=== PATIENT | male | born 1975 | race Caucasian/White ===

== ENCOUNTER 2016-12-16 08:29 | Inpatient (IN) | payer BC ==
[2016-12-05 09:59] VITALS: Ht 188 cm; Wt 171.3 kg
--- NOTE | 2016-12-05 10:44 | PAT Medication Instructions ---
Service Date Dec 05, 2016. Current Home Medication List Acetaminophen (Tylenol Arthritis Ext Rel), 1,300 MG PO PRN Albuterol Hfa (Ventolin Hfa), 2 PUFFS INH Q6H PRN for PRN Atomoxetine (Strattera), 80 MG PO QAM Dextromethorphan-Guaifenesin (Mucinex Dm), 1 TAB PO PRN Lisinopril (Zestril), 10 MG PO QAM Loratadine (Claritin), 10 MG PO QAM Montelukast Sodium (Singulair), 10 MG PO HS Medication Instructions For Your Scheduled Surgery - Hold the following medications the morning of surgery: Loratadine (Claritin), 10 MG PO QAM Lisinopril (Zestril), 10 MG PO QAM Dextromethorphan-Guaifenesin (Mucinex Dm), 1 TAB PO PRN Atomoxetine (Strattera), 80 MG PO QAM (okay to take after surgery) - Take the following medications the morning of surgery with a sip of water: Acetaminophen (Tylenol Arthritis Ext Rel), 1,300 MG PO PRN Albuterol Hfa (Ventolin Hfa), 2 PUFFS INH Q6H PRN for PRN (bring with you hospital morning of surgery) - Take the following medications as scheduled the night before surgery: Montelukast Sodium (Singulair), 10 MG PO HS Acetaminophen (Tylenol Arthritis Ext Rel), 1,300 MG PO PRN Albuterol Hfa (Ventolin Hfa), 2 PUFFS INH Q6H PRN for PRN If you have any questions please call us at [phone] (Clementina Green PA-C) or [phone] or [phone]
[2016-12-05 12:19] LABS: URINE APPEARANCE CLEAR (CLEAR); URINE BILIRUBIN NEG (NEG); URINE COLOR YELLOW; URINE NITRITE NEG (NEG); URINE SPECIFIC GRAVITY 1.019 (1.000-1.030); UROBILINOGEN NEG (NEG)
[2016-12-05 12:52] LABS: MANUAL MICROSCOPIC REQUIRED? NO; REVIEW REQ? NO
[~2016-12-16] VITALS: Ht 188 cm; Wt 171.3 kg
[2016-12-16] VITALS (8 sets, daily range): BP systolic 120–162; BP diastolic 76–110; PULSE 85–100; TEMP 36–37.1; O2SAT 93–100
--- NOTE | 2016-12-16 07:29 | History and Physical ---
History & Physical Date & Time of Service: Dec 16, 2016 at 07:22 Chief Complaint: Lumbar Spinal Stenosis Primary Care Physician: Magalis Burns PA-C History of Present Illness Source: patient Patient presents with years of uncontrolled back pain and bilateral buttock pain. Has failed epidural injections and presents for surgical intervention. Social History Smoking Status: Former Smoker Allergies Coded Allergies: Erythromycin (Verified Allergy, Unknown, RED SKIN, FELT HOT, 12/05/16) Fluticasone (Verified Allergy, Unknown, SOB, 12/05/16) Milk Protein Extract (Verified Allergy, Unknown, SOB, 12/05/16) Salmeterol (Verified Allergy, Unknown, SOB, 12/05/16) Home Medications Scheduled Acetaminophen (Tylenol Arthritis Ext Rel), 1,300 MG PO PRN Atomoxetine (Strattera), 80 MG PO QAM Dextromethorphan-Guaifenesin (Mucinex Dm), 1 TAB PO PRN Lisinopril (Zestril), 10 MG PO QAM Loratadine (Claritin), 10 MG PO QAM Montelukast Sodium (Singulair), 10 MG PO HS Scheduled PRN Albuterol Hfa (Ventolin Hfa), 2 PUFFS INH Q6H PRN for PRN Physical Exam General Appearance: WD/WN Head: normocephalic Eyes: normal inspection ENT: normal ENT inspection Neck: supple Respiratory/Chest: chest non-tender Cardiovascular: regular rate, rhythm, no edema Abdomen/GI: non tender Back: normal inspection, + decreased range of motion Extremities/Musculoskelatal: normal inspection, non-tender Neurologic/Psych: no motor/sensory deficits, alert, normal mood/affect Skin: warm/dry Diagnostics Diagnostic Radiology MRI reveals multi level degeneration with stenosis at L3-4, L4-5, and L5-S1. Impression Assessment and Plan Multilevel multifactorial spinal stenosis. Conservative tx failed. will proceed with a L3-S1 decompression and fusion. Risks benefits and alternatives were discussed. Advanced Directives Existing Living Will: No Existing Power of Boomboat Operator: No
--- NOTE | 2016-12-16 08:15 | History & Physical Bridge Note ---
H&P Re-Evaluation Bridge Note: I have examined the patient, reviewed the History & Physical and in the interval since the performance of the History & Physical I have noted the following changes of clinical significance: No changes noted
[~2016-12-16 08:29] MED LIST: ACET1TAB84 PO; ATOM40CA PO; ATROPINE SULFATE 0.1 MG/ML 5ML SYR IV PRN; CEFAZOLIN 3000 MG/65 ML D5W IV SCH; CLR10 PO; DEXT30TA7 PO; FENTANYL CITRATE INJ 50 MCG/1 ML 2 ML VIAL IV PRN; HYDROmorphone INJ 1 MG/ML SYR IV PRN; LACTATED RINGER'S 1000ML 1,000 ML IV SCH; LISI-461 PO; MONT1TAB3 PO; ONDANSETRON INJ 2 MG/ML 2 ML VIAL IV PRN; VNTHFA/IN INH
[2016-12-16] MEDS ORDERED: ATV/1 PO (09:07)
[2016-12-16] MEDS ORDERED: LORA-741 PO (09:28)
[2016-12-16] MEDS ORDERED: MIDAZOLAM HCL 1 MG/ML 2ML VIAL ONE (10:52)
[2016-12-16] MEDS ORDERED: FENTANYL CITRATE INJ 50 MCG/1 ML 2 ML VIAL ONE ×9 (10:52→15:12)
[2016-12-16] MEDS ORDERED: BACITRACIN 50000 UNIT VIAL ONE (11:22)
[2016-12-16] MEDS ORDERED: SODIUM CHLORIDE 0.9% PF 50 ML VIAL ONE (11:22)
[2016-12-16] MEDS ORDERED: BUPIVACAINE/EPINEPHRINE 0.5% MPF 1:200,000 30 ML VIAL ONE (11:22)
[2016-12-16] MEDS ORDERED: HYDROmorphone INJ 2 MG/ML SYR/VIAL ONE ×3 (12:18→13:17)
[2016-12-16] MEDS ORDERED: DEXAMETHASONE SOD INJ 4 MG/ML VIAL ONE (13:08)
[2016-12-16] MEDS ORDERED: ONDANSETRON INJ 2 MG/ML 2 ML VIAL ONE ×2 (13:08→14:51)
[2016-12-16] MEDS ORDERED: PROPOFOL IV EMULSION 10 MG/ML 20 ML VIAL IV ONE (13:08)
[2016-12-16] MEDS ORDERED: ROCURONIUM BROMIDE 10 MG/ML 5 ML VIAL ONE (13:08)
[2016-12-16] MEDS ORDERED: LIDOCAINE HCL 2% 2 ML VIAL (20MG/ML) ONE (13:08)
[2016-12-16] MEDS ORDERED: FLOSEAL HEMOSTATIC MATRIX 10ML TOP ONE (14:15)
[2016-12-16] MEDS ORDERED: SOD PHOSPHATE/SOD BIPHOSPHATE ENEMA 132 ML BTL PR PRN (14:30)
[2016-12-16] MEDS ORDERED: METOCLOPRAMIDE HCL INJ 5 MG/ML 2 ML VIAL IV PRN (14:30)
[2016-12-16] MEDS ORDERED: ACETAMINOPHEN 500 MG TAB PO PRN (14:30)
[2016-12-16] MEDS ORDERED: FAMOTIDINE 20 MG TAB PO PRN (14:30)
[2016-12-16] MEDS ORDERED: NALOXONE HCL 0.4 MG/1 ML VIAL/CARP IV PRN ×2 (14:30)
[2016-12-16] MEDS ORDERED: DO NOT ADMINISTER FLU VACCINE PRN ×3 (14:30)
[2016-12-16] MEDS ORDERED: hydrOXYzine HCL 25 MG TAB PO PRN (14:30)
[2016-12-16] MEDS ORDERED: BISACODYL 10 MG SUPP PR PRN (14:30)
[2016-12-16] MEDS ORDERED: ACETAMINOPHEN IV 100 ML IV PRN (14:30)
[2016-12-16] MEDS ORDERED: ALBUTEROL HFA 8 GM INHALER INH PRN (14:30)
[2016-12-16] MEDS ORDERED: LORAZEPAM INJ 0.5 MG in SYRINGE 0.75 ML IV PRN (14:30)
[2016-12-16] MEDS ORDERED: HYDROmorphone HCL 0.5MG/ML 50 ML CASSETTE IV PRN (14:30)
[2016-12-16] MEDS ORDERED: ALUMINUM/MAGNESIUM SUSP 30 ML UDC PO PRN (14:30)
[2016-12-16] MEDS ORDERED: PROMETHAZINE HCL INJ 12.5 MG in SODIUM CHLORIDE 0.9% 50ML 50 ML IV PRN (14:30)
[2016-12-16] MEDS ORDERED: DO NOT ADMINISTER PNEUMOCOCCAL VACCINE PRN ×2 (14:30)
[2016-12-16] MEDS ORDERED: ONDANSETRON INJ 2 MG/ML 2 ML VIAL IV PRN (14:30)
[2016-12-16] MEDS ORDERED: SODIUM CHLORIDE 0.9% 1000ML 1,000 ML IV SCH (14:30)
[2016-12-16] MEDS ORDERED: MAGNESIUM HYDROXIDE SUSP 30 ML UDC PO PRN (14:30)
--- NOTE | 2016-12-16 14:30 | [facility] Post Operative Brief Note ---
Immediate Operative Summary Operative Date Dec 16, 2016. Pre-Operative Diagnosis Lumbar Spinal Stenosis Post-Operative Diagnosis same as pre-operative Procedure(s) Performed L3-S1 Lumbar Laminectomy, Decompression, Pedicle Screw Fixation, Placement of Interbody Device, L5-S1 Posterolateral Fusion, Application of Allograft, Bone Morphogenetic Protein Surgeon Dr. Du Keita Boatbuilder Apprentice Wood Surgeon(s) Yassine Vargas PA-C Estimated Blood Loss 600ml Findings spondy Specimens none
--- NOTE | 2016-12-16 14:36 | DIAGNOSTIC IMAGING REPORT ---
LUMBAR SPINE, INTRAOPERATIVE FLUOROSCOPY HISTORY: L3-S1 decompression and fusion. FLUOROSCOPY TIME: 34 seconds. FINDINGS: Intraoperative fluoroscopy was provided for the lumbar spine. 3 fluoroscopic spot images were obtained. Posterior decompression and fusion from L3 through S1 with pedicle screws and rods. The hardware appears intact. IMPRESSION: Fluoroscopy provided for a L3-S1 posterior decompression and fusion. Electronically signed by: Dean Kearney M.D. 12/16/2016 2:34 PM Dictated Date/Time: 12/16/2016 2:33 PM
[2016-12-16] MEDS ORDERED: GLYCOPYRROLATE INJ 0.2 MG/ML VIAL ONE (14:52)
[2016-12-16] MEDS ORDERED: KETOROLAC TROMETHAMINE 30 MG/ML VIAL ONE (14:52)
[2016-12-16] MEDS ORDERED: NEOSTIGMINE METHYLSULFATE 1 MG/ML 10ML VIAL ONE (14:52)
[2016-12-16] MEDS ORDERED: HYDROmorphone HCL 0.5MG/ML 50 ML CASSETTE ONE (15:13)
--- NOTE | 2016-12-16 15:21 | OPERATIVE REPORT ---
DATE OF OPERATION: 12/16/2016 PREOPERATIVE DIAGNOSES: Spinal stenosis and spondylolisthesis. POSTOPERATIVE DIAGNOSES: Same. PROCEDURES PERFORMED: 1. Lumbar decompression, medial facetectomy and foraminotomy L4-L5, L5-S1. 2. Posterior spinal fusion L3-L4, L4-L5, L5-S1. 3. Placement of posterior segmental instrumentation using Orthros rods and screws as well as a crosslink L3-L4, L4-L5, L5-S1. 4. Interbody fusion L5-S1. 5. Placement of PEEK cage 14 x 26 mm x2 at L5-S1. 6. Placement of locally harvested morcellized autograft in the posterior gutters. 7. Placement of Infuse collagen sponge combined with Mastergraft in the posterior gutters and [place] bone grafting in the interbody space. SURGEON: Dr. Du Keita. LADIES LOCKER ROOM ATTENDANT: KATI Guadalupe. Due to the complex nature of the procedure, the entire surgery was performed with the certified first assistant of KATI Guadalupe. The department assistant, under direct supervision, was involved in the actual performance of all aspects of the surgical procedure including hemostasis, tissue retraction and incision, instrument management, patient positioning, and wound closure. ANESTHESIA: General. DISPOSITION: The patient awakened and taken to PACU in stable condition. HISTORY OF PATIENT'S PROBLEMS: This is a 41-year-old male who presents with above-mentioned diagnoses. After failing an extensive course of nonoperative care, he elected to undergo the above-mentioned procedures. Risks, benefits, pros, cons, and alternatives were outlined in detail preoperatively. DESCRIPTION OF PROCEDURE: The patient was met with preoperatively, case discussed and all questions were addressed. At that point, the patient was taken back to operative suite and after undergoing successful general intubation via department of anesthesia, he was placed in prone position on Remi table atop Wilmer frame. All bony prominences were well padded and the eyes were inspected to ensure there was no external pressure placed upon them. At this point, lumbar spine was prepped and draped in normal sterile fashion. Sharp dissection with the assistance of Bovie cautery was performed down to and exposing the lamina and transverse processes of L3, L4, L5 and sacral ala bilaterally. From a caudal to cephalad fashion, complete laminectomy of L5, partial laminectomy of L4 was performed addressing severe lateral recess and foraminal disease. Obvious pars defect at L5-S1 was appreciated bilaterally including a significant foraminal disease. After this was addressed, pedicle screws were then placed in L3, L4, L5 and S1 levels bilaterally with assistance of fluoroscopy and appropriately sized lauren provisionally placed. Through a transforaminal approach on the right, a complete diskectomy of L5-S1 was performed, endplates curetted to subcortical bleeding bone and a 14 x 26 mm PEEK cage filled with [place] bone grafting tapped into position. I then proceeded to do the left side and again performed annulotomy and placed a 14 x 26 mm PEEK cage on this side as well. This was filled with [place] bone grafting. Rods were then compressed, locked into final position bilaterally, and crosslink locked into position. The transverse processes of L3, L4, L5 and sacral ala burred to subcortical bone. Infuse collagen sponge combined with Mastergraft and locally harvested morcellized autograft was placed in the posterior gutters. A 7 flat APRIL drain was inserted. Incision was closed with #1 Vicryl in the fascia, 2-0 Vicryl subcutaneously, and 4-0 Monocryl for final skin closure. Steri-Strips and sterile dressing placed. The patient was awakened and taken to PACU in stable condition. I attest to the content of the Intraoperative Record and any orders documented therein. Any exceptio ns are noted below.
[2016-12-16] MEDS ORDERED: ACETAMINOPHEN 1000 MG/100 ML IV IV ONE ×3 (16:12→16:17)
[2016-12-16] MEDS ORDERED: LABETALOL HCL IV 5 MG/ML 20ML IV ONE (16:45)
--- NOTE | 2016-12-16 16:51 | Anesthesiology Progress Note ---
Anesthesia Post Op Note Date & Time Dec 16, 2016 at 16:51 Vital Signs Pain Intensity: 6 Vital Signs Past 12 Hours Date Time Temp Pulse Resp B/P Pulse Ox O2 Delivery O2 Flow Rate FiO2 12/16/16 16:30 79 10 136/76 99 Nasal Cannula 4 12/16/16 16:20 78 12 137/66 98 Nasal Cannula 4 12/16/16 16:10 81 16 145/78 90 Nasal Cannula 4 12/16/16 16:00 83 16 136/75 99 Nasal Cannula 4 12/16/16 15:50 81 16 139/77 99 Nasal Cannula 4 12/16/16 15:40 87 16 139/60 96 Nasal Cannula 4 12/16/16 15:30 85 16 135/91 96 Nasal Cannula 4 12/16/16 15:20 81 16 150/73 99 Mask 10 12/16/16 15:10 82 16 148/82 98 Mask 10 12/16/16 15:03 36.5 83 16 138/84 99 Mask 10 12/16/16 09:14 37.1 96 18 162/99 95 Room Air 158/110 Notes Mental Status: alert / awake / arousable, participated in evaluation Pt Amnestic to Procedure: Yes Nausea / Vomiting: adequately controlled Pain: adequately controlled Airway Patency, RR, SpO2: stable & adequate BP & HR: stable & adequate Hydration State: stable & adequate Anesthetic Complications: no major complications apparent
[2016-12-16] MEDS: LACTATED RINGER'S 1000ML 1,000 ML IV SCH ×2 (17:10→21:05)
[2016-12-16] MEDS: CEFAZOLIN IV 3,000 MG in DEXTROSE 5% 50ML 50 ML IV SCH (19:57)
[2016-12-16] MEDS: DOCUSATE SODIUM/SENNA 50/8.6MG TAB PO SCH (21:04)
[2016-12-16] MEDS: MONTELUKAST SOD 10 MG TAB PO SCH (21:04)
[2016-12-16] MEDS: DEXAMETHASONE INJ 6 MG in SYRINGE 0 ML IV SCH (21:06)
[2016-12-17] MEDS: CEFAZOLIN IV 3,000 MG in DEXTROSE 5% 50ML 50 ML IV SCH (03:42)
[2016-12-17] MEDS: LACTATED RINGER'S 1000ML 1,000 ML IV SCH (03:44)
[2016-12-17 03:45] VITALS: BP 121/69; PULSE 107; TEMP 36.6; O2SAT 99
[2016-12-17] MEDS: DEXAMETHASONE INJ 6 MG in SYRINGE 0 ML IV SCH ×2 (05:35→14:02)
[2016-12-17 05:40] VITALS: PULSE 101
[2016-12-17] MEDS: OXYCODONE HCL IR 5 MG TAB (IMMEDIATE RELEASE) PO PRN ×4 (05:44→19:43)
[2016-12-17 05:59] LABS: BASO ABS # 0.01 K/uL (0-0.2); COMPLETE YES; HEMATOCRIT 36.8 % (42-52); IG% 0.3 %; LYMPH % 4.6 %; LYMPH ABS # 0.94 K/uL (1.2-3.4); MEAN CORPUSCULAR HEMOGLOBIN 29.3 pg (25-34); MEAN CORPUSCULAR HGB CONC 32.6 g/dl (32-36); MEAN PLATELET VOLUME 9.6 fL (7.4-10.4); MONO % 6.2 %; NEUT % 88.9 %; PLATELET COUNT 314 K/uL (130-400); RED BLOOD COUNT 4.09 M/uL (4.7-6.1); WHITE BLOOD COUNT 20.43 K/uL (4.8-10.8)
[2016-12-17] MEDS ORDERED: HYDROmorphone INJ 0.5 MG/0.5 ML SYR IV PRN (06:00)
[2016-12-17] MEDS ORDERED: HYDROmorphone INJ 1 MG/ML SYR IV PRN (06:00)
[2016-12-17] MEDS ORDERED: DC PCA SCH (06:00)
[2016-12-17 06:38] LABS: BUN/CREATININE RATIO 16.8 (10-20); CALCIUM 8.6 mg/dl (8.5-10.1); POTASSIUM 4.6 mmol/L (3.5-5.1)
[2016-12-17] MEDS ORDERED: VOLUVEN IN NSS ONE (07:04)
[2016-12-17 07:10] VITALS: BP 140/98; PULSE 111; TEMP 37.1; O2SAT 94
[2016-12-17] MEDS ORDERED: NURSING DECISION MEDICATION ORDER SCH ×2 (07:15→07:30)
[2016-12-17] MEDS: ATOMOXETINE 40 MG CAP PO SCH (07:20)
[2016-12-17] MEDS: LORATADINE 10 MG TAB PO SCH (07:20)
[2016-12-17] MEDS: LISINOPRIL 10 MG TAB PO SCH (07:20)
[2016-12-17] MEDS ORDERED: COUGH DROP (SUGAR FREE) LOZ 24 LOZ/1 BOX ONE (07:29)
[2016-12-17] MEDS ORDERED: COUGH DROP (SUGAR FREE) LOZ 24 LOZ/1 BOX PO PRN (07:45)
[2016-12-17] MEDS: LORAZEPAM 0.5 MG TAB PO PRN ×2 (09:17→20:45)
--- NOTE | 2016-12-17 11:31 | PROGRESS NOTE ---
DATE: 12/17/2016 DATE: 12/17/2016. SUBJECTIVE: Postop day 1. Back pain controlled. Leg pain improved. Vital signs stable. T-max 37.1. APRIL drained 120 mL. Hematocrit this a.m. is 36.8. OBJECTIVE: On exam, the patient is in chair at bedside. Demonstrates good strength to testing. Appears comfortable. ASSESSMENT: Status post lumbar decompression and fusion. PLAN: At this time, will advance his bowel regimen and physical therapy. Anticipate home possibly Monday.
[2016-12-17 15:37] VITALS: BP 125/71; PULSE 118; TEMP 37; O2SAT 95
[2016-12-17] MEDS: MONTELUKAST SOD 10 MG TAB PO SCH (20:42)
[2016-12-17] MEDS: DOCUSATE SODIUM/SENNA 50/8.6MG TAB PO SCH (20:43)
[2016-12-17 23:09] VITALS: BP 125/78; PULSE 110; TEMP 37.2; O2SAT 93
[2016-12-18] MEDS: POLYETHYLENE (MIRALAX) 17 GM PACK PO SCH ×4 (05:51→22:34)
[2016-12-18] MEDS: OXYCODONE HCL IR 5 MG TAB (IMMEDIATE RELEASE) PO PRN ×5 (05:55→22:38)
[2016-12-18 07:36] VITALS: BP 125/78; PULSE 97; TEMP 36.7; O2SAT 99
[2016-12-18] MEDS: LISINOPRIL 10 MG TAB PO SCH (08:41)
[2016-12-18] MEDS: LORATADINE 10 MG TAB PO SCH (08:41)
[2016-12-18] MEDS: ATOMOXETINE 40 MG CAP PO SCH (08:41)
--- NOTE | 2016-12-18 08:49 | PROGRESS NOTE ---
DATE: 12/18/2016 SUBJECTIVE: He is postoperative day #2 lumbar decompression and fusion. He is doing well. No complaints. No radicular leg pain. Back pain controlled. APRIL drain output last shift was 55 mL. Total of 303 mL in the past 24 hours. He is passing gas. Yesterday in physical therapy, ambulating roughly 20 feet. PHYSICAL EXAMINATION: GENERAL: He is sitting in a chair. He is in no obvious distress. He is alert and oriented x3. LOWER EXTREMITIES: Calves are soft and nontender. Neurovascularly intact. Lumbar dressing is clean, dry and intact. ASSESSMENT: Postop day #2 lumbar decompression and fusion. PLAN: Will continue with physical therapy. Continue with pain control. Maintain APRIL drain and dressing. DVT prophylaxis in the form of TEDs and SCDs. Anticipate discharge home tomorrow.
[2016-12-18 15:22] VITALS: BP 117/74; PULSE 107; TEMP 36.9; O2SAT 96
[2016-12-18] MEDS: MONTELUKAST SOD 10 MG TAB PO SCH (21:17)
[2016-12-18] MEDS: DOCUSATE SODIUM/SENNA 50/8.6MG TAB PO SCH (21:18)
[2016-12-18] MEDS: LORAZEPAM 0.5 MG TAB PO PRN (21:20)
[2016-12-18 23:09] VITALS: BP 111/66; PULSE 95; TEMP 36.9; O2SAT 96
[2016-12-19] MEDS: POLYETHYLENE (MIRALAX) 17 GM PACK PO SCH (05:54)
[2016-12-19] MEDS ORDERED: NURSING DECISION MEDICATION ORDER SCH (06:00)
[2016-12-19 06:41] VITALS: BP 128/76; PULSE 106; TEMP 36.3; O2SAT 97
[2016-12-19] MEDS: LORATADINE 10 MG TAB PO SCH (07:23)
[2016-12-19] MEDS: ATOMOXETINE 40 MG CAP PO SCH (07:23)
[2016-12-19] MEDS: LISINOPRIL 10 MG TAB PO SCH (07:24)
[2016-12-19] MEDS: OXYCODONE HCL IR 5 MG TAB (IMMEDIATE RELEASE) PO PRN ×2 (07:24→11:55)
[2016-12-19] MEDS ORDERED: RXC5 PO (07:37)
--- NOTE | 2016-12-19 07:37 | Discharge Instructions ---
Discharge Instructions Date of Service Dec 19, 2016. Admission Reason for Admission: Lumbar Spinal Stenosis Discharge Discharge Diagnosis / Problem: stenosis Discharge Goals Goal(s): Improve function Activity Recommendations Activity Limitations: per Instructions/Follow-up section . Instructions / Follow-Up Instructions / Follow-Up ACTIVITY RECOMMENDATIONS: SELF CARE INSTRUCTIONS AFTER THORACIC/LUMBAR FUSIONS 1. You may walk to your tolerance. It is good exercise for your legs and back. Expect some back and intermittent leg aches and pains. 2. You may perform "counter-top" level activities (make a sandwich, [place] with a project, etc.). 3. No bending or lifting of more than 10 pounds or back twisting of any nature (roll like a log when turning in bed). 4. You may ride in a car for 20-30 minutes at a time. No driving until after your first visit with your doctor. 5. Frequent changes of position and restricting sitting to 30 minutes at a time will help limit the amount of back spasms and stiffness you may experience. 6. You may discontinue the use of ambulatory aids (cane, crutches, etc.) once your strength and confidence allow. 7. You may technical testing engineer the shower and let water strike your incision when you arrive home at least once daily. Do not take a tub bath, sit in a hot tub or go into a swimming pool until after your first recheck in the office. SPECIAL CARE INSTRUCTIONS: VERY IMPORTANT TO READ AND REVIEW A. Your surgical incision has been closed with a cosmetic suture under the skin that will dissolve in about 6 weeks. In 14 days, you can use a pair of clean scissors and cut the suture that is left outside of the skin at the ends of your incision. 1. The small skin tapes can be removed 7 days after surgery if they have not fallen off by that point. 2. You may keep the wound open to air as much as possible to promote healing after post-op day number 5 unless told otherwise by your doctor. 3. If you think the wound looks like it is becoming infected (redness or worsening drainage) and/or you are experiencing fever, chill or worsening back pain and muscle spasms, contact the office so that we may evaluate you as soon as possible. B. Complications are uncommon, but please contact us if you have any signs or symptoms of: 1. wound infection (fever higher than 102.5 degrees F, redness, separation of wound, drainage, or increasing pain from the incision) 2. blood clots in legs (pain, swelling, redness and warmth in legs) 3. urinary tract infection (fever higher than 102.5 degrees F, burning upon urination or increased frequency of urination) 4. nerve problems (inability to walk on your toes or heels, numbness, loss of bowel or bladder control) 5. any other symptoms that concern you C. Please call the office at if you have any concerns or questions about your operation or recovery. D. No smoking! Smoking drastically decreases the chance of a solid fusion. E. Do not take any anti-inflammatory medications (Indocin, Advil, Motrin, Aspirin, Naprosyn, etc.) as these may inhibit the chance of a solid fusion. Tylenol is okay to take for pain. MANAGING PAIN AFTER SPINAL SURGERY 1. Narcotic medication is intended for short-term use and will be provided for surgical pain. Surgical pain usually lasts for a period of 4-6 weeks. Narcotic medication includes Percocet, Vicodin, Darvocet, Tylenol #3 or Lortab. 2. Longer-term pain is more appropriately treated with non-narcotic medication such as Tylenol ES. 3. Muscle spasm is not appropriately treated with narcotics. Muscle relaxers such as Soma, Flexeril or Skelaxin can be used along with Tylenol ES. 4. Remember that we all live with some "aches and pains". This is not unusual or uncommon after an injury or as we get older. a. Back pain is expected and may include muscle spasms for 4 to 6 weeks after surgery. The pain should gradually improve. If the pain worsens for no apparent reason, please contact the office. b. Intermittent leg pain may also be experienced and should not be concerned about unless it worsens for no apparent reason. If so, please contact the office. 5. We will provide appropriate medication within the normal guidelines of their prescribed use. We will also be very cautious and aware of potential abuse and extended duration of patients' medication needs. a. Pain medications are for your comfort and to assist with sleep and rest so that the tissue can heal. They are not provided in order to return to normal activity and should not be used through the day. To do so or worsening pain at night can result from ongoing tissue damage and development of tolerance to the prescribed medicine. 6. Please allow 2-3 days to process refills. Prescriptions will not be mailed but must be picked up at the office. FOLLOW UP VISIT: Keep your scheduled follow-up appointment. Any questions, please call the office at . Current Hospital Diet Patient's current hospital diet: Regular Diet Discharge Diet Recommended Diet: Regular Diet Procedures Procedures Performed: L3-S1 Lumbar Laminectomy, Decompression, Pedicle Screw Fixation, Posterolateral Fusion, L5-S1 Placement of Interbody Device, Application of [place] Allograft and Bone Morphogenetic Protein Pending Studies Studies pending at discharge: no Medical Emergencies . Who to Call and When: Medical Emergencies: If at any time you feel your situation is an emergency, please call 911 immediately. . Non-Emergent Contact Non-Emergency issues call your: Primary Care Provider . "Provider Documentation" section prepared by Du Keita. . VTE Core Measure Inpt VTE Proph given/why not?: Trevor Porter, MATTHIEU's
--- NOTE | 2016-12-19 08:11 | Anesthesiology Progress Note ---
Anesthesia Post Op Note Date & Time Dec 19, 2016 at 08:09 Vital Signs Vital Signs Past 12 Hours Date Time Temp Pulse Resp B/P Pulse Ox O2 Delivery O2 Flow Rate FiO2 12/19/16 07:15 Room Air 12/19/16 06:41 36.3 106 18 128/76 97 Room Air 12/18/16 23:09 36.9 95 12 111/66 96 Room Air 12/18/16 22:38 Room Air Notes Mental Status: alert / awake / arousable, participated in evaluation Pt Amnestic to Procedure: Yes Nausea / Vomiting: adequately controlled Pain: adequately controlled Airway Patency, RR, SpO2: stable & adequate BP & HR: stable & adequate Hydration State: stable & adequate Anesthetic Complications: no major complications apparent
[2016-12-19 08:33] VITALS: BP 128/76; PULSE 106; TEMP 36.3; O2SAT 97
--- NOTE | 2016-12-20 00:05 | DISCHARGE SUMMARY ---
PRINCIPAL DIAGNOSIS: Spinal stenosis. HOSPITAL COURSE: On the , the patient underwent multilevel lumbar decompression and fusion, tolerated this well and taken to the orthopedic floor postoperatively. Postop day #1, he was up and ambulatory, progressed to postop day #2. Postop day #3, pain well controlled. APRIL drain decreased appropriately and subsequently discharged home. Discharge orders and instructions found on the chart for further review.
== END 2016-12-19 14:16 | disposition home or self-care (01) | DRG 460 ==
LOC: ENRESERVTM → ENRESERVDT → C.ACU 08:29 → C.3E 11:00
PROVIDERS: ADMIT Orthopaedic Surgery Orthopaedic Surgery of the Spine; ATTEND Orthopaedic Surgery Orthopaedic Surgery of the Spine
PROC: 3E0U0GB Introduction of Recombinant Bone Morphogenetic Protein into Joints, Open Approach (ICD-10-PCS; principal; 2016-12-16 11:15)
PROC: 0SG1071 Fusion of 2 or more Lumbar Vertebral Joints with Autologous Tissue Substitute, Posterior Approach, Posterior Column, Open Approach (ICD-10-PCS; principal; 2016-12-16 11:15)
PROC: 0SG3071 Fusion of Lumbosacral Joint with Autologous Tissue Substitute, Posterior Approach, Posterior Column, Open Approach (ICD-10-PCS; principal; 2016-12-16 11:15)
PROC: 0ST40ZZ Resection of Lumbosacral Disc, Open Approach (ICD-10-PCS; principal; 2016-12-16 11:15)
PROC: 0SG30AJ Fusion of Lumbosacral Joint with Interbody Fusion Device, Posterior Approach, Anterior Column, Open Approach (ICD-10-PCS; principal; 2016-12-16 11:15)
DX: M48.06 Spinal stenosis, lumbar region (principal); Z68.42 Body mass index [BMI] 45.0-49.9, adult; M48.07 Spinal stenosis, lumbosacral region; M51.36 Other intervertebral disc degeneration, lumbar region; M51.37 Other intervertebral disc degeneration, lumbosacral region; M43.16 Spondylolisthesis, lumbar region; M43.17 Spondylolisthesis, lumbosacral region; M47.817 Spondylosis without myelopathy or radiculopathy, lumbosacral region; J45.909 Unspecified asthma, uncomplicated; I10 Essential (primary) hypertension; M19.90 Unspecified osteoarthritis, unspecified site; F95.2 Tourette's disorder; E66.01 Morbid (severe) obesity due to excess calories; Z87.891 Personal history of nicotine dependence; Z79.899 Other long term (current) drug therapy